=== PATIENT | female | born 1990 | race Caucasian/White ===

== ENCOUNTER 2016-08-21 12:39 | Emergency (ER) | payer OTHER ==
[2016-08-21] MEDS ORDERED: NS 1,000 ML IV ONE (13:27)
[2016-08-21 13:34] LABS: % IMMATURE GRANULYOCYTES 0.4 % (0.0-1.1); ABSOLUTE IMMATURE GRANULOCYTES 0.05 10^3/uL (0.00-0.10); ADD DIFF? NO; ADD MORPH? NO; ADD SCAN? NO; ATYPICAL LYMPHOCYTE FLAG 10 (0-99); FRAGMENT RBC FLAG 0 (0-99); HEMOGLOBIN 15.2 g/dL (12.6-16.3); LEFT SHIFT FLG 0 (0-99); LIPEMIA HEMOLYSIS FLAG 90 (0-99); MEAN CELL HEMOGLOBIN 30.6 pg (27.9-34.1); MEAN CELL HEMOGLOBIN CONCENTR. 33.8 g/dL (32.4-36.7); MEAN CELL VOLUME 90.7 fL (81.5-99.8); MEAN PLATELET VOLUME 10.3 fL (8.7-11.7); PLATELET CLUMPS FLAG 0 (0-99); PLATELET COUNT 295 10^3/uL (150-400); RED BLOOD CELL COUNT 4.96 10^6/uL (4.18-5.33); RED CELL DISTRIBUTION WIDTH 13.3 % (11.5-15.2)
--- NOTE | 2016-08-21 13:34 | EDPHY ---
H & P Stated Complaint: rlq abd pain with elevated wbc Time Seen by Provider: 08/21/16 13:17 HPI/ROS: CHIEF COMPLAINT: Right lower quadrant pain HISTORY OF PRESENT ILLNESS: Patient is a 26-year-old female with intermittent right lower quadrant pain for the last month. She has a history of polycystic ovarian disease and so assumed this was the cause initially but it has been gradually getting worse. She saw her OBGYN yesterday did a normal pelvic exam and had a normal ultrasound. She referred her to a primary care doctor who found elevated white blood cell count 11.7 today and a small amount of blood in her urine. They were trying to arrange outpatient CT scan but the patient decided to come to the emergency department. She has not had a fever. No vomiting or diarrhea or nausea. She denies risk of . No vaginal bleeding or discharge. No dysuria. REVIEW OF SYSTEMS: Constitutional: denies: chills, fever, recent illness, recent injury EENTM: denies: blurred vision, double vision, nose congestion Respiratory: denies: cough, shortness of breath Cardiac: denies: chest pain, irregular heart rate, lightheadedness, palpitations Gastrointestinal/Abdominal: denies: abdominal pain, diarrhea, nausea, vomiting, blood streaked stools Genitourinary: See HPI Musculoskeletal: denies: joint pain, muscle pain Skin: denies: lesions, rash, jaundice, bruising Neurological: denies: headache, numbness, paresthesia, tingling, dizziness, weakness Hematologic/Lymphatic: denies: blood clots, easy bleeding, easy bruising Immunologic/allergic: denies: HIV/AIDS, transplant EXAM: GENERAL: Well-appearing, obese and in no acute distress. HEAD: Atraumatic, normocephalic. EYES: Pupils equal round and reactive to light, extraocular movements intact, sclera anicteric, conjunctiva are normal. ENT: TMs normal, nares patent, oropharynx clear without exudates. Moist mucous membranes. NECK: Normal range of motion, supple without lymphadenopathy or JVD. LUNGS: Breath sounds clear to auscultation bilaterally and equal. No wheezes rales or rhonchi. HEART: Regular rate and rhythm without murmurs, rubs or gallops. ABDOMEN: Soft, nontender, normoactive bowel sounds. No guarding, no rebound. No masses appreciated. BACK: No CVA tenderness, no spinal tenderness, step-offs or deformities EXTREMITIES: Normal range of motion, no pitting or edema. No clubbing or cyanosis. NEUROLOGICAL: Cranial nerves II through XII grossly intact. Normal speech, normal gait. 5/5 strength, normal movement in all extremities, normal sensation PSYCH: Normal mood, normal affect. SKIN: Warm, dry, normal turgor, no visible rashes or lesions. Source: Patient Exam Limitations: No limitations - Personal History LMP (Females 10-55): 22-28 Days Ago Current Tetanus/Diphtheria Vaccine: Yes - Medical/Surgical History Hx Asthma: No Hx Chronic Respiratory Disease: No Hx Diabetes: No Hx Cardiac Disease: No Hx Renal Disease: No Hx Cirrhosis: No Hx Alcoholism: No Hx HIV/AIDS: No Hx Splenectomy or Spleen Trauma: No Other PMH: pos - Family History Significant Family History: No pertinent family hx - Social History Smoking Status: Never smoked Alcohol Use: None Drug Use: None Constitutional: Initial Vital Signs Temperature (C) 36.7 C 08/21/16 12:44 Heart Rate 78 08/21/16 12:44 Respiratory Rate 18 08/21/16 12:44 Blood Pressure 174/112 H 08/21/16 12:44 O2 Sat (%) 100 08/21/16 12:44 O2 Delivery Mode Room Air Allergies/Adverse Reactions: No Known Allergies Allergy (Unverified 08/21/16 12:43) Home Medications: Medication Instructions Recorded Metformin HCl 08/21/16 Spironolactone 08/21/16 Flaquita 28 Tablet 08/21/16 Medical Decision Making - Diagnostics Imaging: Results: CT scan of the abdomen and pelvis was obtained. The results of the study are negative for appendicitis consistent with mesenteric adenitis. The study was read by Dr. Adali Hernandez. I viewed the images myself on the PACS system. ED Course/Re-evaluation: 3:05 p.m. the patient's symptoms have resolved. Her abdominal exam remains benign. Discussed her CT and lab results which are reassuring. We discussed anti-inflammatory use, hydration and rest. We discussed follow-up. Discussed indications for returning. Patient is happy with this plan and declines further workup or testing at this time and is eager to go home. Differential Diagnosis: Partial list of the Differential diagnosis considered include but were not limited to; urinary tract infection, kidney stone, ovarian cyst, torsion, appendicitis, adenitis and although unlikely based on the history and physical exam, I also considered obstruction, ischemia. I discussed these differential diagnoses and the plan with the patient as well as the usual and expected course. The patient understands that the diagnosis is provisional and that in medicine we are not always correct and that further workup is often warranted. Usual and customary warnings were given. All of the patient's questions were answered. The patient was instructed to return to the emergency department should the symptoms at all worsen or return, otherwise to followup with the physician as we discussed. Consult/Admit Bed Type: - Data Points Laboratory Results: Laboratory Results 08/21/16 13:05 08/21/16 13:05 Medications Given: Discontinued Medications Sodium Chloride (Ns) 1,000 mls @ 0 mls/hr IV ONCE ONE PRN Reason: Wide Open Stop: 08/21/16 13:28 Last Admin: 08/21/16 13:33 Dose: 1,000 mls Ketorolac Tromethamine (Toradol) 30 mg IVP EDNOW ONE Stop: 08/21/16 14:29 Last Admin: 08/21/16 14:34 Dose: 30 mg Departure - Departure Disposition: Home, Routine, Self-Care Clinical Impression: Mesenteric adenitis Condition: Fair Instructions: Mesenteric Adenitis (ED) Referrals: Viktoria Chavis MD [Primary Care Provider] - As per Instructions
[2016-08-21 13:47] LABS: COLOR PALE YELLOW; LEUKOCYTE ESTERASE,URINE NEGATIVE (NEGATIVE); NITRITE,URINE NEGATIVE (NEGATIVE)
[2016-08-21 13:51] LABS: ALANINE AMINOTRANSFERASE 40 IU/L (9-52); ALBUMIN 4.8 g/dL (3.5-5.0); ALKALINE PHOSPHATASE 66 IU/L (38-126); ANION GAP 17 mEq/L (8-16); ASPARTATE AMINOTRANSFERASE 23 IU/L (14-46); BILIRUBIN,TOTAL 0.6 mg/dL (0.1-1.4); BILIRUBIN-CONJUGATED 0.3 mg/dL (0.0-0.5); BILIRUBIN-UNCONJUGATED 0.3 mg/dL (0.0-1.1); CARBON DIOXIDE 22 mEq/l (22-31); CHLORIDE 104 mEq/L (97-110); CREATININE 0.8 mg/dL (0.6-1.0); GLOMERULAR FILTRATION RATE > 60; GLUCOSE 78 mg/dL (70-100); POTASSIUM 4.2 mEq/L (3.5-5.2); SODIUM 143 mEq/L (134-144); TOTAL PROTEIN 8.5 g/dL (6.3-8.2)
[2016-08-21] MEDS ORDERED: IOPAMIDOL (ISOVUE-300) 100 ML BTL IV ONE ×2 (14:03)
[2016-08-21] MEDS ORDERED: KETOROLAC 30 MG/1 ML SDV IVP ONE (14:28)
[2016-08-21 15:50] VITALS: BP 152/96; PULSE 75; RESP 18; TEMP 98.6; O2SAT 96
== END 2016-08-21 15:52 | disposition home or self-care (01) ==
DX: I88.0 Nonspecific mesenteric lymphadenitis (principal)
CPT/HCPCS: 96374; J1885; Q9967